=== PATIENT | male | born 1995 | race African-American/Black ===

== ENCOUNTER 2022-04-24 08:00 | Outpatient (CLI) | payer OTHER ==
[2022-04-24 23:02] LABS: CHLAMYDIA TRACHOMATIS DNA NEGATIVE (NEGATIVE); NEISSERIA GONORRHOEAE DNA NEGATIVE (NEGATIVE)
== END 2022-04-24 23:59 | disposition home or self-care (01) ==
LOC: LAB.N 08:00
PROVIDERS: ATTEND Physician Assistant Medical
DX: R30.0 Dysuria (principal)
CPT/HCPCS: 87086; 87491; 87591; 87661

== ENCOUNTER 2022-11-02 19:34 | Emergency (ER) | payer OTHER ==
--- NOTE | 2022-11-02 20:01 | ED Physician Documentation ---
PD HPI NVD - Stated complaint Stated Complaint: VOMIT - Chief complaint Chief Complaint: General - History obtained from History obtained from: Patient - Additonal information Additional information: HPI from patient. Patient complains of sudden onset of dizziness, described as "things spinning around me" (per patient), associated with nausea and vomiting but only when he is feeling the dizziness. Onset was approximately 90 minutes prior to arrival. Onset was while he was playing flag football; however, he does not recall any specific inciting event (see seems to recall that he was "just standing there" when it came on). Denies history of similar symptoms. The symptoms are distinctly worse with turning his head to either side, ameliorated with's staying still. Review of Systems GI: reports: Nausea, Vomiting. denies: Abdominal Pain Neurologic: denies: Focal weakness, Numbness, Headache PD PAST MEDICAL HISTORY - Past Medical History Past Medical History: No - Present Medications Home Medications: Ambulatory Orders Medication Instructions Recorded Confirmed Meclizine [Antivert] 25 mg PO Q6H PRN #14 tablet 11/02/22 Ondansetron Odt [Zofran Odt] 4 mg TL Q6H PRN #14 tablet 11/02/22 - Allergies Allergies/Adverse Reactions: Allergies Allergy/AdvReac Type Severity Reaction Status Date / Time No Known Drug Allergies Allergy Verified 11/02/22 19:47 PD ED PE NORMAL - Vitals Vital signs reviewed: Yes - General General: Alert and oriented X 3, No acute distress, Well developed/nourished - HEENT HEENT: PERRL, EOMI, Other (no nystagmus) - Neck Neck: Supple, no meningeal sign - Neuro Neuro: Alert and oriented X 3 Results - Vitals Vitals: Vital Signs - 24 hr 11/02/22 11/02/22 11/02/22 19:43 20:01 21:00 Temperature 36.6 C Heart Rate 76 72 69 Respiratory 16 19 18 Rate Blood Pressure 134/100 H 135/98 H 139/100 H O2 Saturation 100 98 97 11/02/22 21:33 Temperature Heart Rate 71 Respiratory 18 Rate Blood Pressure O2 Saturation 99 Oxygen O2 Source Room air PD Medical Decision Making - ED course Complexity details: considered differential, d/w patient ED course: H&P is strongly suggestive of peripheral vertigo. He is given 4 mg TL Zofran as well as 25 mg p.o. meclizine. On reevaluation, patient reports significant improvement with these interventions. Return precautions are reviewed. Diagnosis of vertigo was discussed. Prescriptions for ondansetron and meclizine are electronically submitted to [facility] in [place]. Departure - Departure Disposition: 01 Home, Self Care Clinical Impression: Vertigo Condition: Good Instructions: Meclizine, ED Vertigo Unspecified Follow-Up: AMRIT APPIAH, DO [Primary Care Provider] - (2-3 days if symptoms persist) Prescriptions: Meclizine [Antivert] 25 mg PO Q6H PRN #14 tablet PRN Reason: Vertigo Ondansetron Odt [Zofran Odt] 4 mg TL Q6H PRN #14 tablet PRN Reason: Nausea / Vomiting Comments: Your symptoms are entirely consistent with vertigo. Instructions on vertigo are included in these discharge sheets. I electronically submitted prescriptions for meclizine (antivertigo medication) and ondansetron (antinausea medication) to the [facility] in [place]. If you have recurrence of the vertigo that is not responding to these medications, you can try the Cyndee maneuver. There are many videos on youtube that explain how to perform this relatively simple maneuver. Forms: Activity restrictions Discharge Date/Time: 11/02/22 21:33
[2022-11-02] MEDS ORDERED: MECLIZINE 12.5 MG TABLET PO STA (20:19)
[2022-11-02] MEDS ORDERED: ONDANSETRON ODT 4 MG TABLET TL STA (20:19)
[2022-11-02 21:10] VITALS: BP 139/100
[2022-11-02 21:36] VITALS: O2SAT 99
== END 2022-11-02 21:33 | disposition home or self-care (01) ==
LOC: ED 19:34
DX: R42 Dizziness and giddiness (principal)
CPT/HCPCS: 99282; 99283; A9270; Q0162